=== PATIENT | male | born 1980 | race Two or more races ===

== ENCOUNTER 2016-11-22 19:41 | Emergency (ER) | payer OTHER ==
[~2016-11-22] VITALS: Ht 154.9 cm; Wt 82.6 kg
[2016-11-22] MEDS ORDERED: Metoclopramide 10mg/2ml Inj IVP ONE (20:00)
[2016-11-22] MEDS ORDERED: Morphine Sulfate 4mg/ml Inj IVP ONE (20:00)
[2016-11-22 21:15] LABS: EOSINOPHILS % (AUTO) 1.6 % (0.0-3.0); LYMPHOCYTES % (AUTO) 33.6 % (20.0-45.0); MEAN CORPUSCULAR HEMOGLOBIN 33.4 PG (27.0-31.0); MEAN CORPUSCULAR HGB CONC 34.3 G/DL (32.0-36.0); MEAN CORPUSCULAR VOLUME 97 FL (80-99); MONOCYTES % (AUTO) 11.2 % (1.0-10.0); NEUTROPHILS % (AUTO) 51.5 % (45.0-75.0); PLATELET COUNT 113 K/UL (150-450); RED CELL DISTRIBUTION WIDTH 13.6 % (11.6-14.8); WHITE BLOOD COUNT 9.8 K/UL (4.8-10.8)
--- NOTE | 2016-11-22 21:23 | Emergency Room Report ---
History of Present Illness General Chief Complaint: Abdominal Pain Source: Patient, EMS (JOJO HI D.O.) Present Illness HPI Patient presents initially complaining of abdominal pain quadrant Later in the exam he does complain of right-sided chest pain Patient reports pain in the upper abdomen for the past 3 days Pain is worse with deep inspiration and touch Complains of nausea denies any vomiting or diarrhea Denies any fevers or chills Patient does report taking alcohol on a daily basis and he did drink earlier today Denies any dysuria frequency patient reports similar pain last year and he had examination at [place] which she reports turned out negative (JOJO HI D.O.) Allergies: Coded Allergies: No Known Allergies (Unverified , 11/22/16) Patient History Past Medical History: see triage record Past Surgical History: none Pertinent Family History: none Reviewed Nursing Documentation: PMH: Agreed, PSxH: Agreed (JOJO HI D.O.) Nursing Documentation-PMH Hx Hypertension: Yes Hx Diabetes: Yes (JOJO HI D.O.) Review of Systems All Other Systems: negative except mentioned in HPI (JOJO HI D.O.) Physical Exam Vital Signs Date Time Temp Pulse Resp B/P Pulse Ox O2 Delivery O2 Flow Rate FiO2 11/22/16 19:33 98.2 131 18 144/83 99 Room Air Sp02 EP Interpretation: reviewed, normal General Appearance: no apparent distress Head: normocephalic, atraumatic Eyes: bilateral eye EOMI, bilateral eye PERRL ENT: hearing grossly normal, normal pharynx, no angioedema Neck: full range of motion, supple Respiratory: lungs clear, normal breath sounds Cardiovascular #1: tachycardia Gastrointestinal: other - Tender in the mid abdomen and right upper quadrant, patient appears obese lower abdomen is nontender Genitourinary: no CVA tenderness Musculoskeletal: normal inspection Neurologic: alert, oriented x3, responsive Skin: normal color, no rash Lymphatic: no adenopathy (JOJO HI D.O.) Medical Decision Making Diagnostic Impression: Primary Impression: Abdominal pain of unknown etiology Additional Impressions: Acute alcoholic hepatitis Alcohol intoxication Qualified Codes: F10.120 - Alcohol abuse with intoxication, uncomplicated ER Course Patient present with alcohol intoxication and tachycardia. Procardia probably secondary to alcohol intoxication. Initially said he hasn't drink anything for over 24 hours. This is obviously wrong. Heart rate much better now. Patient sleeping comfortably. We'll discharge home. I discussed the case with his [place] doctor. No evidence of acute abdomen. No evidence of obstruction. Lab Results Impression labs with elevated alcohol level (NICOLE BENITEZ M.D.) Rhythm Strip Diag. Results EP Interpretation: yes Rate: 107 Rhythm: NSR, no PVC's, no ectopy (NICOLE BENITEZ M.D.) CT/MRI/US Diagnostic Results CT/MRI/US Diagnostic Results : Imaging Test Ordered: CT abdomen and pelvis Impression read by radiologist. No acute process. (NICOLE BENITEZ M.D.) Last Vital Signs Date Time Temp Pulse Resp B/P Pulse Ox O2 Delivery O2 Flow Rate FiO2 11/22/16 19:33 98.2 131 18 144/83 99 Room Air (JOJO HI D.O.) Status: improved (NICOLE BENITEZ M.D.) Disposition: HOME, SELF-CARE Condition: Stable Referrals: NOT CHOSEN IPA/,REFERRING (PCP) Additional Instructions: Abstain from alcohol and drugs. Followup with your Caden Levine in 2-5 days. Return if worse. JOJO HI D.O. November 22, 2016 21:23 NICOLE BENITEZ M.D. November 23, 2016 02:04
[2016-11-22 21:33] LABS: ALANINE AMINOTRANSFERASE 81 U/L (3-41); ANION GAP 21 (5-15); ASPARTATE AMINO TRANSFERASE 104 U/L (5-40); CALCIUM 8.9 mg/dL (8.6-10.2); CARBON DIOXIDE 22 mEQ/L (20-30); CHLORIDE 98 mEQ/L (98-107); CREATININE 0.6 mg/dL (0.7-1.2); GLOMERULAR FILTRATION RATE > 60 mL/min (>60); HEMOLYSIS 16; LIPASE 35 U/L (< 60); POTASSIUM 3.6 mEQ/L (3.4-4.9); SODIUM 141 mEQ/L (135-145); TOTAL PROTEIN 8.4 g/dL (6.6-8.7)
[2016-11-22 21:42] VITALS: BP 126/67
[2016-11-22] MEDS ORDERED: LORazepam Inj 2mg/ml 1ml IV ONE ×2 (21:45→23:00)
[2016-11-22 23:03] VITALS: BP 119/61
[2016-11-22 23:08] LABS: BASOPHILS % (AUTO) 1.6 % (0.0-2.0); EOSINOPHILS % (AUTO) 1.7 % (0.0-3.0); LYMPHOCYTES % (AUTO) 31.8 % (20.0-45.0); MEAN CORPUSCULAR HEMOGLOBIN 33.1 PG (27.0-31.0); MEAN CORPUSCULAR HGB CONC 33.7 G/DL (32.0-36.0); MEAN CORPUSCULAR VOLUME 98 FL (80-99); MEAN PLATELET VOLUME 8.6 FL (6.5-10.1); MONOCYTES % (AUTO) 9.9 % (1.0-10.0); NEUTROPHILS % (AUTO) 55.1 % (45.0-75.0); PLATELET COUNT 112 K/UL (150-450); RED BLOOD COUNT 4.27 M/UL (4.70-6.10); RED CELL DISTRIBUTION WIDTH 13.9 % (11.6-14.8); WHITE BLOOD COUNT 11.8 K/UL (4.8-10.8)
[2016-11-22 23:21] LABS: TROPONIN I < 0.30 ng/mL (<=0.30)
[2016-11-22 23:25] LABS: REFLEX LACTIC ACID YES OR NO YES
[2016-11-22 23:26] LABS: INR 1.1 (0.9-1.1); PROTHROMBIN TIME 11.7 SEC (9.30-11.50)
[2016-11-22 23:38] LABS: APPEARANCE,URINE CLEAR; KETONES,URINE NEGATIVE (NEGATIVE); LEUKOCYTE ESTERASE ,URINE NEGATIVE (NEGATIVE); NITRITE,URINE NEGATIVE (NEGATIVE); PH,URINE 6 (4.5-8.0); PROTEIN,URINE NEGATIVE (NEGATIVE); UROBILINOGEN,URINE NORMAL MG/DL (0.0-1.0)
[2016-11-23 01:07] VITALS: BP 116/71
[2016-11-23 02:51] VITALS: BP 108/63
[2016-11-23 04:33] VITALS: BP 112/67
[2016-11-23 05:11] VITALS: BP 112/67
--- NOTE | 2016-11-23 09:55 | Diagnostic Imaging Report ---
Indication: Abdominal pain Technique: Continuous helical transaxial imaging of the abdomen and pelvis was obtained from the lung bases to the pubic symphysis. No intravenous contrast was administered. Coronal 2-D reformats were also obtained. Total Dose length Product (DLP): [address] Dose Index Volume (CTDIvol): 20 mGy Comparison: none Findings: There is bilateral hydronephrosis/hydroureter. This is likely on the basis of a distended urinary bladder. This there are no obstructing stones identified within the kidneys or collecting systems. The appendix is normal. There is no free fluid or abscess. No free air identified. The gallbladder is moderately distended. The liver is abnormal with nodularity of the surface of the liver. This is suggestive of chronic liver disease. Please correlate clinically. The spleen does not appear enlarged. However, the umbilical vein is recanalized suggesting portal hypertension. Impression: Bilateral hydronephrosis likely due to bladder distention. Recommend Mariscal. Normal appendix Cirrhosis/chronic liver disease. Signs of portal hypertension including a recanalized umbilical vein. Please evaluate clinically. Distended gallbladder. No obvious stones seen on this examination. Please correlate clinically. The CT scanner at [facility] is accredited by the [employer] and the scans are performed using dose optimization techniques as appropriate to a performed exam including Automatic Exposure control.
--- NOTE | 2016-11-23 10:53 | Diagnostic Imaging Report ---
Indication: Chest Pain Comparison: None A single view chest radiograph was obtained. Findings: Cardiomediastinal appearance is within normal limits for age. Pulmonary vascularity is appropriate. The diaphragmatic contour is smooth and costophrenic angles are sharp. No pleural effusions are identified. The bones are unremarkable. Impression: No acute findings
== END 2016-11-23 05:11 | disposition home or self-care (01) ==
LOC: EDBD 19:41 → EMR 20:14
DX: R10.9 Unspecified abdominal pain (principal); K70.10 Alcoholic hepatitis without ascites; F10.229 Alcohol dependence with intoxication, unspecified; R00.0 Tachycardia, unspecified; I10 Essential (primary) hypertension; E11.9 Type 2 diabetes mellitus without complications
CPT/HCPCS: 36415; 71010; 74176; 80053; 80300; 81003; 83605; 83690; 84484; 85025; 85610; 93005; 96360; 96361; 96374; 96375; 99284; G0480; J2270; J2765; 80329